=== PATIENT | female | born 1990 | race Caucasian/White ===

== ENCOUNTER 2019-10-11 10:30 | Emergency (ER) | payer OTHER ==
[~2019-10-11] VITALS: Ht 162.6 cm; Wt 72.7 kg
[2019-10-11 10:41] VITALS: TEMP 98.2
[2019-10-11] MEDS ORDERED: PROZAC 20MG20 MG PO (10:47)
[2019-10-11] MEDS ORDERED: MYWAY PO (10:48)
[2019-10-11 11:07] LABS: COLLECTION METHOD CLEAN CATCH
[2019-10-11 11:16] LABS: PH 7 (5-8); SQUAMOUS EPITHELIAL 0-2 /hpf; URINE APPEARANCE Clear; URINE BACTERIA Rare /hpf; URINE BILIRUBIN Negative (NEGATIVE); URINE BLOOD 1+ (NEGATIVE); URINE COLOR Colorless; URINE GLUCOSE Negative (NEGATIVE); URINE KETONE Negative (NEGATIVE); URINE LEUKOCYTE ESTERASE Negative (NEGATIVE); URINE NITRATE Negative (NEGATIVE); URINE PROTEIN(semi-quant) Negative (NEGATIVE); URINE RBC None Seen /hpf; URINE UROBILINOGEN Negative (NEGATIVE)
[2019-10-11 11:52] LABS: BASO % 0.3 % (0.0-2.0); EOS % 0.3 % (0-4.0); GRAN # 6.7 (1.4-6.5); GRAN % 69.1 % (42.2-75.2); HEMOGLOBIN 12.4 g/dl (12.5-16.0); LYMPH # 2.2 (1.2-3.4); MEAN CELL VOLUME 88 fl (80.0-100.0); MEAN CORPUSCULAR HEMOGLOBIN 30 pg (27.0-31.0); MEAN CORPUSCULAR HGB CONC 34 g/dl (33.0-37.0); MEAN PLATELET VOLUME 10.5 fl (7.4-10.4); MONO # 0.7 (0.1-0.6); PLATELET COUNT 318 K/mm3 (130-400); RED BLOOD COUNT 4.19 M/mm3 (4.10-5.30); REDCELL DISTRIBUTION WIDTH-CV 12.5 % (11.5-14.5)
[2019-10-11 11:54] LABS: HEMATOCRIT 36.9 % (37.0-47.0)
[2019-10-11 11:59] LABS: ALANINE AMINOTRANSFERASE 14 U/L (9-52); ALBUMIN 4.2 gm/dL (3.5-5.0); ALKALINE PHOSPHATASE 77 U/L (50-136); ANION GAP 9 mmol/L (7-16); AST,SGOT 22 U/L (15-37); BILIRUBIN,TOTAL 0.7 mg/dL (0.0-1.0); BLOOD UREA NITROGEN 10 mg/dL (7-17); C-REACTIVE PROTEIN 2.7 mg/dL (0.0-0.9); CARBON DIOXIDE 26 mmol/L (22-30); CHLORIDE 105 mmol/L (98-107); CREATININE, serum 0.65 (0.52-1.25); GLUCOSE 97 mg/dL (74-106); PHOSPHOROUS 3.1 mg/dL (2.5-4.5); SODIUM 140 mmol/L (137-145); TOTAL PROTEIN 7.3 gm/dL (6.4-8.2)
[2019-10-11 12:48] LABS: TROPONIN-I < 0.012 ng/mL (0.000-0.035)
[2019-10-11 12:55] LABS: TSH w REFLEX 0.919 uIU/mL (0.465-4.680)
[2019-10-11 14:33] VITALS: BP 119/76; PULSE 60
== END 2019-10-11 14:35 | disposition home or self-care (01) ==
LOC: COL.ER 10:30
PROVIDERS: Emergency Medicine
DX: R55 Syncope and collapse (principal); R00.2 Palpitations; F41.9 Anxiety disorder, unspecified
CPT/HCPCS: J7030; Q9967

== ENCOUNTER → 2020-04-21 | Outpatient (CLI) | payer OTHER ==
[~2020-04-21] MED LIST: MYWAY PO; PROZAC 20MG20 MG PO
== END ==
LOC: ZCOL.LAB 20:26
DX: R05 Cough (principal); Z20.828 Contact with and (suspected) exposure to other viral communicable diseases

== ENCOUNTER → 2020-08-25 | Outpatient (CLI) | payer OTHER | LOC: COL.PUL 07:28 | DX: R06.02 Shortness of breath (principal); R06.2 Wheezing ==

== ENCOUNTER → 2020-10-23 | Outpatient (CLI) | payer OTHER | LOC: COL.PUL 09:33 | DX: R94.2 Abnormal results of pulmonary function studies (principal); R06.02 Shortness of breath | CPT/HCPCS: J7674 ==

== ENCOUNTER → 2021-01-20 | Outpatient (CLI) | payer OTHER | LOC: ZCOL.LAB 13:35 | DX: Z01.89 Encounter for other specified special examinations (principal) ==